=== PATIENT | female | born 1970 | race Caucasian/White ===

== ENCOUNTER 2021-04-30 15:01 | Emergency (ER) | payer SELFPAY ==
[~2021-04-30] VITALS: Ht 170.2 cm; Wt 100.0 kg
--- NOTE | 2021-04-30 15:15 | ED Abdominal Pain ---
General Chief Complaint: Abdominal/GI Problems Stated Complaint: NAUSEA | VOMITING History of Present Illness Date Seen by Provider: Apr 30, 2021 Time Seen by Provider: 15:13 Initial Comments 51-year-old female presents with nausea vomiting which began last night and she states she has been vomiting all night since then. Does have some upper abdominal discomfort. Denies recent illness, fever chills or cough. Does have a history of a stroke with difficulty speaking and residual weakness. Further history given by patient's mother, whom she is not living with for the past few weeks. She moved here from [place] to be cared for by her mother. 3 years ago she had a brain aneurysm and subsequent surgeries resulting in her neurologic deficit. She has been living in a care facility and according to her mother was only taking Zoloft and a cholesterol medicine. Otherwise she has been doing well. Allergies and Home Medications Allergies Coded Allergies: Penicillins (Verified Allergy, Unknown, 04/30/21) Home Medications Famotidine 20 Mg Tablet, 20 MG PO BID Prescribed by: KIRTI SOMMER on 04/30/21 1603 Metoprolol Succinate 50 Mg Tab.er.24h, 50 MG PO DAILY Prescribed by: KIRTI SOMMER on 04/30/21 1723 Ondansetron 4 Mg Tab.rapdis, 4 MG PO TID Prescribed by: KIRTI SOMMER on 04/30/21 1603 Patient Home Medication List Home Medication List Reviewed: Yes Review of Systems Review of Systems Constitutional: No dizziness, No fever; malaise EENTM: No Symptoms Reported Respiratory: Denies Cough, Denies Shortness of Air Cardiovascular: Denies Chest Pain, Denies Edema, Denies Palpitations Gastrointestinal: Abdominal Pain, Nausea, Vomiting Musculoskeletal: No back pain, No joint pain Skin: No change in color, No rash Past Ggsaprz-Kjziqw-Gkibna Hx Past Medical History Neurological (brain aneurysm) Stroke Physical Exam Vital Signs Vital Signs - First Documented 04/30/21 15:06 Temp 36.8 Pulse 107 Resp 18 B/P (MAP) 208/104 (138) Pulse Ox 95 O2 Delivery Room Air Capillary Refill : Height/Weight/BMI Height: '" Weight: lbs. oz. kg; BMI Method: General Appearance: WD/WN, no apparent distress HEENT: PERRL/EOMI, normal ENT inspection Respiratory: chest non-tender, lungs clear, normal breath sounds, no respiratory distress, no accessory muscle use Cardiovascular: regular rate, rhythm, no edema, no JVD Gastrointestinal: soft, no pulsatile mass; No distended, No guarding, No rebound; tenderness (epigastric); No mass, No hepatomegaly, No spleenomegaly Extremities: non-tender, normal inspection Back: normal inspection, no CVA tenderness Neurologic/Psychiatric: alert, normal mood/affect, oriented x 3 Skin: normal color, warm/dry Focused Exam Lactate Level 04/30/21 15:38: Lactic Acid Level 3.67*H 04/30/21 16:20: Lactic Acid Level 3.28*H Lactic Acid Level Laboratory Tests Test 04/30/21 15:38 04/30/21 16:20 Lactic Acid Level 3.67 MMOL/L (0.50-2.00) *H 3.28 MMOL/L (0.50-2.00) *H Progress/Results/Core Measures Results/Orders Lab Results Laboratory Tests Test 04/30/21 15:21 04/30/21 15:38 04/30/21 16:20 Range/Units White Blood Count 12.2 H 4.3-11.0 10^3/uL Red Blood Count 5.88 H 4.35-5.85 10^6/uL Hemoglobin 15.0 11.5-16.0 G/DL Hematocrit 46 35-52 % Mean Corpuscular Volume 77 L 80-99 FL Mean Corpuscular Hemoglobin 26 25-34 PG Mean Corpuscular Hemoglobin Concent 33 32-36 G/DL Red Cell Distribution Width 15.8 H 10.0-14.5 % Platelet Count 325 130-400 10^3/uL Mean Platelet Volume 9.6 7.4-10.4 FL Immature Granulocyte % (Auto) 1 % Neutrophils (%) (Auto) 83 H 42-75 % Lymphocytes (%) (Auto) 12 12-44 % Monocytes (%) (Auto) 4 0-12 % Eosinophils (%) (Auto) 0 0-10 % Basophils (%) (Auto) 0 0-10 % Neutrophils # (Auto) 10.1 H 1.8-7.8 X 10^3 Lymphocytes # (Auto) 1.5 1.0-4.0 X 10^3 Monocytes # (Auto) 0.5 0.0-1.0 X 10^3 Eosinophils # (Auto) 0.1 0.0-0.3 10^3/uL Basophils # (Auto) 0.1 0.0-0.1 10^3/uL Immature Granulocyte # (Auto) 0.1 0.0-0.1 10^3/uL Sodium Level 137 135-145 MMOL/L Potassium Level 4.2 3.6-5.0 MMOL/L Chloride Level 97 L 98-107 MMOL/L Carbon Dioxide Level 24 21-32 MMOL/L Anion Gap 16 H 5-14 MMOL/L Blood Urea Nitrogen 4 L 7-18 MG/DL Creatinine 0.59 L 0.60-1.30 MG/DL Estimat Glomerular Filtration Rate > 60 BUN/Creatinine Ratio 7 Glucose Level 233 H 70-105 MG/DL Calcium Level 9.8 8.5-10.1 MG/DL Corrected Calcium 9.5 8.5-10.1 MG/DL Total Bilirubin 0.5 0.1-1.0 MG/DL Aspartate Amino Transf (AST/SGOT) 38 H 5-34 U/L Alanine Aminotransferase (ALT/SGPT) 29 0-55 U/L Alkaline Phosphatase 145 H 40-136 U/L Total Protein 8.0 6.4-8.2 GM/DL Albumin 4.4 3.2-4.5 GM/DL Lipase 13 8-78 U/L Lactic Acid Level 3.67 *H 3.28 *H 0.50-2.00 MMOL/L My Orders Orders - ROVENSTINEKIRTI DO Ed Iv/Invasive Line Start (04/30/21 15:16) Cbc With Automated Diff (04/30/21 15:16) Comprehensive Metabolic Panel (04/30/21 15:16) Lipase (04/30/21 15:16) Lactic Acid Analyzer (04/30/21 15:16) Abdomen (Kub) 1 View (04/30/21 15:16) Ns Iv 1000 Ml (Sodium Chloride 0.9%) (04/30/21 15:30) Ondansetron Injection (Zofran Injectio (04/30/21 15:30) Ns Iv 1000 Ml (Sodium Chloride 0.9%) (04/30/21 16:15) Lactic Acid Analyzer (04/30/21 17:00) Ondansetron Injection (Zofran Injectio (04/30/21 16:45) Medications Given in ED Current Medications Medications Dose Ordered Sig/Deshawn Route Start Time Stop Time Status Last Admin Dose Admin Ondansetron HCl 4 mg ONCE ONCE IVP 04/30/21 15:30 04/30/21 15:31 DC 04/30/21 15:42 4 MG Ondansetron HCl 4 mg ONCE ONCE IVP 04/30/21 16:45 04/30/21 16:46 DC 04/30/21 16:59 4 MG Vital Signs/I&O 04/30/21 15:06 Temp 36.8 Pulse 107 Resp 18 B/P (MAP) 208/104 (138) Pulse Ox 95 O2 Delivery Room Air Progress Progress Note : Progress Note no further vomiting in ER, lactic acid decreasing p 1 liter NS. Given 2nd liter and doing well. Discussed establishing care w PCP in [facility] and getting evaluated this week if possible. Both patient and her mother (current caregiver) agree and understand. Will need to continue hydration at home and caution w food choices due to nausea for a couple days Blood pressure remained high despite patient stating she felt back to normal. Discussed starting BP medication today and Rx written with plan to establish PCP this week. Diagnostic Imaging Diagonstic Imaging: Xray Comments Date of Exam:04/30/21 ABDOMEN (KUB) 1 VIEW INDICATION: Epigastric pain. EXAMINATION: KUB at 03:32 p.m. FINDINGS: Lung bases are clear. Bowel gas pattern is normal. There are no pathologic masses or calcifications. IMPRESSION: No acute abnormalities in the abdomen. Dictated on workstation # [id number] Dict: 04/30/21 1549 Trans: 04/30/21 1551 [id number] Interpreted by: YONI PATEL MD Electronically signed by: Departure Impression Primary Impression: Nausea and vomiting Qualified Codes: R11.2 - Nausea with vomiting, unspecified Additional Impression: Hypertension Qualified Codes: I10 - Essential (primary) hypertension Disposition: 01 HOME, SELF-CARE Condition: Improved Departure-Patient Inst. Decision time for Depature: 17:17 Referrals: NO,LOCAL PHYSICIAN (PCP/Family) Primary Care Physician Patient Instructions: CLEAR LIQUID DIET ADULT/CHILD, High Blood Pressure ED, Nausea and Vomiting, Adult ED Add. Discharge Instructions: You are advised to establish care with a local physician of your choice. It is recommended you be seen this week if possible. If you are unable to be seen and your symptoms are not improving or worse, please return to the nearest ER All discharge instructions reviewed with patient and/or family. Voiced understanding. Scripts Metoprolol Succinate (Metoprolol Succinate) 50 Mg Tab.er.24h 50 MG PO DAILY, #30 TAB Prov: KIRTI SOMMER DO 04/30/21 Famotidine (Pepcid) 20 Mg Tablet 20 MG PO BID, #20 TAB Prov: KIRTI SOMMER DO 04/30/21 Ondansetron (Ondansetron Odt) 4 Mg Tab.rapdis 4 MG PO TID for Nausea, #12 TAB Prov: KIRTI SOMMER DO 04/30/21 KIRTI SOMMER DO Apr 30, 2021 15:15
[2021-04-30] MEDS ORDERED: NS IV 1000 ML 1,000 ML IV SCH ×2 (15:30→16:15)
[2021-04-30] MEDS ORDERED: ONDANSETRON 4 MG/2 ML (SDV) Z0FRAN IVP ONE ×2 (15:30→16:45)
--- NOTE | 2021-04-30 15:52 | Diagnostic Imaging Report ---
INDICATION: Epigastric pain. EXAMINATION: KUB at 03:32 p.m. FINDINGS: Lung bases are clear. Bowel gas pattern is normal. There are no pathologic masses or calcifications. IMPRESSION: No acute abnormalities in the abdomen. Dictated by: Dictated on workstation # [id number]
[2021-04-30 15:53] LABS: BILIRUBIN,TOTAL 0.5 MG/DL (0.1-1.0); BUN/CREATININE RATIO 7; CALCIUM 9.8 MG/DL (8.5-10.1); CARBON DIOXIDE 24 MMOL/L (21-32); CHLORIDE 97 MMOL/L (98-107); CREATININE SERUM 0.59 MG/DL (0.60-1.30); GFR ESTIMATED > 60; GLUCOSE 233 MG/DL (70-105); POTASSIUM 4.2 MMOL/L (3.6-5.0); SODIUM 137 MMOL/L (135-145)
[2021-04-30 15:54] LABS: ALANINE AMINOTRANSFERASE 29 U/L (0-55); ALBUMIN 4.4 GM/DL (3.2-4.5); ALKALINE PHOSPHATASE 145 U/L (40-136); LIPASE 13 U/L (8-78)
[2021-04-30 15:58] LABS: HEMATOCRIT 46 % (35-52); MEAN CORPUSCULAR HEMOGLOBIN 26 PG (25-34); MEAN CORPUSCULAR HGB CONC 33 G/DL (32-36); MEAN CORPUSCULAR VOLUME 77 FL (80-99); WHITE BLOOD COUNT 12.2 10^3/uL (4.3-11.0)
[2021-04-30 15:59] LABS: BASOPHILS # (AUTO) 0.1 10^3/uL (0.0-0.1); BASOPHILS % (AUTO) 0 % (0-10); EOSINOPHILS # (AUTO) 0.1 10^3/uL (0.0-0.3); EOSINOPHILS % (AUTO) 0 % (0-10); LYMPHOCYTES # (AUTO) 1.5 X 10^3 (1.0-4.0); LYMPHOCYTES % (AUTO) 12 % (12-44); MEAN PLATELET VOLUME 9.6 FL (7.4-10.4); MONOCYTES # (AUTO) 0.5 X 10^3 (0.0-1.0); MONOCYTES % (AUTO) 4 % (0-12); NEUTROPHILS # (AUTO) 10.1 X 10^3 (1.8-7.8); NEUTROPHILS % (AUTO) 83 % (42-75); PLATELET COUNT 325 10^3/uL (130-400)
[2021-04-30] MEDS ORDERED: ONDA4TAB11 PO (16:03)
[2021-04-30] MEDS ORDERED: FAMO-119 PO (16:03)
[2021-04-30] MEDS ORDERED: METO50TA7 PO (17:23)
[2021-04-30 17:40] VITALS: BP 193/93
== END 2021-04-30 17:40 | disposition home or self-care (01) ==
LOC: ER FS 15:10
DX: R11.2 Nausea with vomiting, unspecified (principal); I10 Essential (primary) hypertension; Z86.73 Personal history of transient ischemic attack (TIA), and cerebral infarction without residual deficits
CPT/HCPCS: 36415; 74018; 80053; 83605; 83690; 85025

== ENCOUNTER 2021-12-04 10:24 | Emergency (ER) | payer MEDICAID ==
[~2021-12-04] VITALS: Ht 167.7 cm; Wt 79.4 kg
[~2021-12-04 10:24] MED LIST: FAMO-119 PO; METO50TA7 PO; ONDA4TAB11 PO
--- NOTE | 2021-12-04 10:27 | ED General ---
General Stated Complaint: AMS History of Present Illness Date Seen by Provider: Dec 04, 2021 Time Seen by Provider: 10:27 Initial Comments 51-year-old female brought in due to altered mentation. Patient brought in by EMS. Patient has a prior history of strokes, is nonmobile, is a Nic lift at home. EMS reports that they got report from 3 different individuals in the household. That her symptoms are anywhere from a day that 3-5 days old. They report that she is normally alert and talking but not currently. No reports of cough, fever, chills, vomiting or any other systemic illness. Allergies and Home Medications Allergies Coded Allergies: Penicillins (Verified Allergy, Unknown, 04/30/21) No Allergy Information Available (Unverified , 12/04/21) Patient Home Medication List Home Medication List Reviewed: Yes Famotidine (Pepcid) 20 Mg Tablet, 20 MG PO BID Prescribed by: KIRTI SOMMER on 04/30/21 1603 Metoprolol Succinate (Metoprolol Succinate) 50 Mg Tab.er.24h, 50 MG PO DAILY Prescribed by: KIRTI SOMMER on 04/30/21 1723 Ondansetron (Ondansetron Odt) 4 Mg Tab.rapdis, 4 MG PO TID Prescribed by: KIRTI SOMMER on 04/30/21 1603 Review of Systems Review of Systems Constitutional: see HPI EENTM: no symptoms reported Respiratory: no symptoms reported Cardiovascular: no symptoms reported Gastrointestinal: no symptoms reported Genitourinary: no symptoms reported Musculoskeletal: see HPI Skin: no symptoms reported Psychiatric/Neurological: See HPI Hematologic/Lymphatic: No Symptoms Reported Immunological/Allergic: no symptoms reported Physical Exam Vital Signs Vital Signs - First Documented 12/04/21 10:25 Temp 38.3 Pulse 132 Resp 14 B/P (MAP) 119/89 (99) O2 Delivery Room Air Capillary Refill : Height, Weight, BMI Height: '" Weight: lbs. oz. kg; BMI Method: General Appearance: Chronically ill, Cachetic HEENT: PERRL/EOMI, Other (Patient will follow me with her eyes you may respond appropriately. Patient has a very dry mouth) Respiratory: Lungs Clear, Normal Breath Sounds Cardiovascular: No Edema, Tachycardia Gastrointestinal: No Distended, No Guarding Extremity: Normal Capillary Refill, Other (Patient's lower extremities are at baseline with no movement.) Neurologic/Psychiatric: Alert, Other (Patient will one-word answer a few questions, difficult to understand but she does seem to understand questions and answer appropriately) Skin: Warm/Dry Focused Exam Lactate Level 12/04/21 10:25: Lactic Acid Level 3.13*H 12/04/21 12:35: Lactic Acid Level Laboratory Tests Test 12/04/21 10:25 12/04/21 12:35 Lactic Acid Level 3.13 MMOL/L (0.50-2.00) *H Progress/Results/Core Measures Suspected Sepsis SIRS Temperature: Pulse: Respiratory Rate: Laboratory Tests 12/04/21 10:25: White Blood Count 14.0H Blood Pressure / Mean: 12/04/21 10:25: Lactic Acid Level 3.13*H 12/04/21 12:35: Laboratory Tests 12/04/21 10:25: Creatinine 2.90H, Platelet Count 256, Total Bilirubin 1.2H Results/Orders Lab Results Laboratory Tests Test 12/04/21 10:25 12/04/21 10:35 12/04/21 10:48 12/04/21 12:35 Range/Units White Blood Count 14.0 H 4.3-11.0 10^3/uL Red Blood Count 7.29 H 3.80-5.11 10^6/uL Hemoglobin 19.0 H 11.5-16.0 g/dL Hematocrit 62 H 35-52 % Mean Corpuscular Volume 85 80-99 fL Mean Corpuscular Hemoglobin 26 25-34 pg Mean Corpuscular Hemoglobin Concent 31 L 32-36 g/dL Red Cell Distribution Width 18.7 H 10.0-14.5 % Platelet Count 256 130-400 10^3/uL Mean Platelet Volume 12.6 H 9.0-12.2 fL Immature Granulocyte % (Auto) 1 % Neutrophils (%) (Auto) 73 42-75 % Lymphocytes (%) (Auto) 19 12-44 % Monocytes (%) (Auto) 8 0-12 % Eosinophils (%) (Auto) 0 0-10 % Basophils (%) (Auto) 1 0-10 % Neutrophils # (Auto) 10.2 H 1.8-7.8 10^3/uL Lymphocytes # (Auto) 2.6 1.0-4.0 10^3/uL Monocytes # (Auto) 1.1 H 0.0-1.0 10^3/uL Eosinophils # (Auto) 0.0 0.0-0.3 10^3/uL Basophils # (Auto) 0.1 0.0-0.1 10^3/uL Immature Granulocyte # (Auto) 0.1 0.0-0.1 10^3/uL Neutrophils % (Manual) 77 % Lymphocytes % (Manual) 17 % Monocytes % (Manual) 5 % Eosinophils % (Manual) 0 % Basophils % (Manual) 1 % Band Neutrophils 0 % Sodium Level 172 *H 135-145 MMOL/L Potassium Level 4.1 3.6-5.0 MMOL/L Chloride Level 136 H 98-107 MMOL/L Carbon Dioxide Level 13 L 21-32 MMOL/L Anion Gap 23 H 5-14 MMOL/L Blood Urea Nitrogen 76 H 7-18 MG/DL Creatinine 2.90 H 0.60-1.30 MG/DL Estimat Glomerular Filtration Rate 19 BUN/Creatinine Ratio 26 Glucose Level 245 H 70-105 MG/DL Lactic Acid Level 3.13 *H 0.50-2.00 MMOL/L Calcium Level 9.3 8.5-10.1 MG/DL Corrected Calcium 9.4 8.5-10.1 MG/DL Magnesium Level 3.2 H 1.6-2.4 MG/DL Total Bilirubin 1.2 H 0.1-1.0 MG/DL Aspartate Amino Transf (AST/SGOT) 76 H 5-34 U/L Alanine Aminotransferase (ALT/SGPT) 122 H 0-55 U/L Alkaline Phosphatase 169 H 40-136 U/L Troponin I < 0.30 <0.30 NG/ML Total Protein 7.8 6.4-8.2 GM/DL Albumin 3.9 3.2-4.5 GM/DL Urine Color DK YELLOW Urine Clarity SLIGHTLY CLOUDY Urine pH 5.5 5-9 Urine Specific [place] >=1.030 1.016-1.022 Urine Protein 2+ H NEGATIVE Urine Glucose (UA) TRACE H NEGATIVE Urine Ketones NEGATIVE NEGATIVE Urine Nitrite NEGATIVE NEGATIVE Urine Bilirubin 2+ H NEGATIVE Urine Urobilinogen 1.0 < = 1.0 MG/DL Urine Leukocyte Esterase NEGATIVE NEGATIVE Urine RBC (Auto) 1+ H NEGATIVE Urine RBC NONE /HPF Urine WBC 2-5 /HPF Urine Squamous Epithelial Cells 0-2 /HPF Urine Crystals NONE /LPF Urine Bacteria FEW H /HPF Urine Casts PRESENT /LPF Urine Hyaline Casts 2-5 H /LPF Urine Mucus SMALL H /LPF Urine Culture Indicated NO My Orders Orders - VALERIANO KUMARI DO Ct Head Wo (12/04/21 10:30) Chest 1 View Ap/Pa Only (12/04/21 10:30) Covid 19 Inhouse Test (12/04/21 10:30) Ekg Tracing (12/04/21 10:37) Monitor-Rhythm Ecg Trace Only (12/04/21 10:37) Troponin I Fs (12/04/21 10:37) Cbc With Automated Diff (12/04/21 11:01) Comprehensive Metabolic Panel (12/04/21 11:01) Lactic Acid Analyzer (12/04/21 11:01) Magnesium (12/04/21 11:01) Ua Culture If Indicated (12/04/21 11:01) Manual Differential (12/04/21 10:25) Lactated Ringers (Lr 1000 Ml Iv Solution (12/04/21 11:24) Osmolality Urine (12/04/21 11:54) Osmolality Serum (12/04/21 11:54) Vital Signs/I&O 12/04/21 10:25 Temp 38.3 Pulse 132 Resp 14 B/P (MAP) 119/89 (99) O2 Delivery Room Air Capillary Refill : ECG Initial ECG Impression Date: Dec 04, 2021 Initial ECG Impression Time: 10:39 Initial ECG Rate: 130 Initial ECG Rhythm: S.Tach Initial ECG Impression: Nonspecific Changes Comment old infarct, no acute findings Diagnostic Imaging Diagonstic Imaging: CT Plain Films/CT/US/NM/MRI: head Comments CT HEAD WO PROCEDURE: CT head without contrast. TECHNIQUE: Multiple contiguous axial images were obtained through the brain without the use of intravenous contrast. Auto Exposure Controls were utilized during the CT exam to meet ALARA standards for radiation dose reduction. INDICATION: 51-year-old female presents to the Emergency Room with weakness, history of stroke and previous clipping and coiling of multiple brain aneurysms. COMPARISONS: None FINDINGS: The midline structures are not displaced. There is overall generalized atrophy with involutional changes advanced for age. The ventricles are prominent possibly representing element of communicating hydrocephalus. Beam hardening artifact from the clips L1 in the region of the left paraclinoid ICA, the 2nd in the left sylvian fissure in the distal left MCA are noted. There is also beam hardening artifact possibly from ACOM aneurysm coiling. The midline structures are not displaced. Brower-white differentiation maintained and there is no sulcal effacement. There are no abnormal extra-axial fluid collections or hemorrhage. Basilar cisterns appear normal. Sinuses, orbits, and mastoid air cells are unremarkable. Bone windows show history of previous left frontal craniotomy. IMPRESSION: 1. 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 2. There is generalized atrophy with volume loss primarily in the frontal lobes. There is also some encephalomalacia in the left frontal lobe subjacent to an old left frontal craniotomy. 3. 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 This may be chronic, however, correlation with comparisons would be of further value. Additional nonemergent findings as described above. Reviewed: Reviewed by Me, Reviewed/Discussed Diagonstic Imaging: Xray Plain Films/CT/US/NM/MRI: chest Comments Date of Exam:12/04/21 CHEST 1 VIEW AP/PA ONLY INDICATION: Altered mental status. No priors. FINDINGS: The lungs are clear. There is no failure pattern, effusion or pneumothorax. IMPRESSION: Unremarkable frontal chest. Departure Impression Primary Impression: Dehydration with hypernatremia Additional Impression: Acute kidney failure Qualified Codes: N17.9 - Acute kidney failure, unspecified Disposition: 02 XFER SHT-TRM HOSP Condition: Improved Transfer Transfer Reason: Exceeds level of care Time Spoke to Accepting Phy: 12:40 Transfer Progress Notes accepted by Dr Asaf Landrum Transfer Facility: VALERIANO Abrams DO Dec 04, 2021 10:27
--- NOTE | 2021-12-04 11:02 | Diagnostic Imaging Report ---
PROCEDURE: CT head without contrast. TECHNIQUE: Multiple contiguous axial images were obtained through the brain without the use of intravenous contrast. Auto Exposure Controls were utilized during the CT exam to meet ALARA standards for radiation dose reduction. INDICATION: 51-year-old female presents to the Emergency Room with weakness, history of stroke and previous clipping and coiling of multiple brain aneurysms. COMPARISONS: None FINDINGS: The midline structures are not displaced. There is overall generalized atrophy with involutional changes advanced for age. The ventricles are prominent possibly representing element of communicating hydrocephalus. Beam hardening artifact from the clips L1 in the region of the left paraclinoid ICA, the 2nd in the left sylvian fissure in the distal left MCA are noted. There is also beam hardening artifact possibly from ACOM aneurysm coiling. The midline structures are not displaced. Brower-white differentiation maintained and there is no sulcal effacement. There are no abnormal extra-axial fluid collections or hemorrhage. Basilar cisterns appear normal. Sinuses, orbits, and mastoid air cells are unremarkable. Bone windows show history of previous left frontal craniotomy. IMPRESSION: 1. 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 2. There is generalized atrophy with volume loss primarily in the frontal lobes. There is also some encephalomalacia in the left frontal lobe subjacent to an old left frontal craniotomy. 3. 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 This may be chronic, however, correlation with comparisons would be of further value. Additional nonemergent findings as described above. Dictated by: Dictated on workstation # [id number]
--- NOTE | 2021-12-04 11:02 | Diagnostic Imaging Report ---
INDICATION: Altered mental status. No priors. FINDINGS: The lungs are clear. There is no failure pattern, effusion or pneumothorax. IMPRESSION: Unremarkable frontal chest. Dictated by: Dictated on workstation # [id number]
[2021-12-04 11:10] LABS: BASOPHILS # (AUTO) 0.1 10^3/uL (0.0-0.1); BASOPHILS % (AUTO) 1 % (0-10); EOSINOPHILS % (AUTO) 0 % (0-10); HEMATOCRIT 62 % (35-52); LYMPHOCYTES # (AUTO) 2.6 10^3/uL (1.0-4.0); LYMPHOCYTES % (AUTO) 19 % (12-44); MEAN CORPUSCULAR HEMOGLOBIN 26 pg (25-34); MEAN CORPUSCULAR HGB CONC 31 g/dL (32-36); MEAN CORPUSCULAR VOLUME 85 fL (80-99); MEAN PLATELET VOLUME 12.6 fL (9.0-12.2); MONOCYTES # (AUTO) 1.1 10^3/uL (0.0-1.0); MONOCYTES % (AUTO) 8 % (0-12); NEUTROPHILS # (AUTO) 10.2 10^3/uL (1.8-7.8); NEUTROPHILS % (AUTO) 73 % (42-75); PLATELET COUNT 256 10^3/uL (130-400)
[2021-12-04 11:13] LABS: GLUCOSE, URINE (UA) TRACE (NEGATIVE); KETONES,URINE NEGATIVE (NEGATIVE); LEUKOCYTE ESTERASE ,URINE NEGATIVE (NEGATIVE); NITRITE,URINE NEGATIVE (NEGATIVE); PH,URINE 5.5 (5-9); PROTEIN,URINE 2+ (NEGATIVE)
[2021-12-04] MEDS ORDERED: LACTATED RINGERS 1,000 ML IV STA (11:24)
[2021-12-04 11:33] LABS: CLARITY,URINE SLIGHTLY CLOUDY; COLOR,URINE DK YELLOW
[2021-12-04 11:34] LABS: BACTERIA,URINE FEW /HPF; BILIRUBIN,URINE 2+ (NEGATIVE); SQUAMOUS EPITHELIAL CELL,UR 0-2 /HPF
[2021-12-04 11:51] LABS: CALCIUM 9.3 MG/DL (8.5-10.1); CREATININE SERUM 2.9 MG/DL (0.60-1.30); POTASSIUM 4.1 MMOL/L (3.6-5.0)
[2021-12-04 11:52] LABS: ALBUMIN 3.9 GM/DL (3.2-4.5); BILIRUBIN,TOTAL 1.2 MG/DL (0.1-1.0); MAGNESIUM 3.2 MG/DL (1.6-2.4); TOTAL PROTEIN 7.8 GM/DL (6.4-8.2)
[2021-12-04 12:33] LABS: BAND NEUTROPHILS 0 %; BASOPHILS % (MANUAL) 1 %; EOSINOPHILS % (MANUAL) 0 %; LYMPHOCYTES % (MANUAL) 17 %; MONOCYTES % (MANUAL) 5 %; NEUTROPHILS % (MANUAL) 77 %
[2021-12-04] MEDS ORDERED: LACTATED RINGERS 1,000 ML IV ONE (12:51)
[2021-12-04 14:44] VITALS: BP 132/85
== END 2021-12-04 14:44 | disposition short-term general hospital (02) ==
LOC: EDUNIT# 10:24 → ER FS 10:30
DX: E86.0 Dehydration (principal); E87.0 Hyperosmolality and hypernatremia; N17.9 Acute kidney failure, unspecified; R00.0 Tachycardia, unspecified; Z20.822 Contact with and (suspected) exposure to COVID-19
CPT/HCPCS: 36415; 70450; 71045; 80053; 81000; 83605; 83735; 83930; 83935; 84484; 85007; 85027; 87636; 93005; 93041